=== PATIENT | female | born 1960 | race Caucasian/White ===

== ENCOUNTER 2020-03-06 12:34 | Outpatient (REF) | payer OTHER, SELFPAY ==
[2020-03-06 13:35] LABS: MANUAL DIFF FLAG NO
[2020-03-06 13:47] LABS: Basophils Absolute Auto 0.1 X10*3/uL (0.0-0.2); Basophils Percent Auto 1.4 % (0-2); Eosinophils Absolute Auto 0.1 X10*3/uL (0.0-0.4); Eosinophils Percent Auto 1.6 % (0-4); Hematocrit 40.1 % (37-47); Hemoglobin 13.1 g/dl (12.0-16.0); Imm Gran Abs Auto 0.01 X10*3/uL (0.00-0.03); Imm Gran Pct Auto 0.2 % (0.0-0.4); Lymphocytes Percent Auto 40.9 % (20-40); Mean Corpuscular HGB Conc 32.7 g/dl (31.0-35.0); Mean Corpuscular Hemoglobin 28.2 pg (27.0-33.0); Mean Corpuscular Volume 86.4 fL (80-98); Mean Platelet Volume 10.6 fL (9.4-12.3); Monocytes Absolute Auto 0.3 X10*3/uL (0.1-1.2); Neutrophils Absolute Auto 2.5 X10*3/uL (2.0-8.3); Neutrophils Percent Auto 49.9 % (45-73); Platelet Count 260 X10*3/uL (160-400); Red Blood Count 4.64 X10*6/uL (4.20-5.50); Red Cell Distribution Width 12.7 % (11.0-16.0)
[2020-03-06 14:31] LABS: Alanine Aminotransferase 14 U/L (0-31); Albumin Level 4.5 g/dL (3.5-5.0); Alkaline Phosphatase 57 U/L (39-117); Anion Gap 14 (12-20); Aspartate Amino Transferase 17 U/L (5-31); Bilirubin Total 0.6 mg/dL (0.0-1.0); Blood Urea Nitrogen 11 mg/dL (9-16); Calcium 9.3 mg/dL (8.4-10.2); Carbon Dioxide 26 mmol/L (22-29); Chloride 104 mmol/L (96-108); Cholesterol 227 mg/dL; Estimated Glomerular Filt Rate > 60; Glucose Random 98 mg/dL (60-115); HDL Cholesterol 87 mg/dL; LDL Cholesterol Calculated 123 mg/dl; Potassium 4.6 mmol/l (3.3-5.1); Sodium 139 mmol/L (135-145); Total Protein 7.2 g/dL (6.5-8.0); Triglycerides 85 mg/dL
[2020-03-06 14:48] LABS: Free T4 (Free Thyroxine) 0.78 ng/dL (0.71-1.85); Thyroid Stimulating Hormone 0.89 uIU/mL (0.32-4.0); Vitamin D 25-OH Total 30.3 ng/mL (>30)
[2020-03-06 15:08] LABS: Folate 7.9 ng/mL (> or = 4.0); Vitamin B12 321 pg/mL (200-900)
== END 2020-03-06 12:35 | disposition home or self-care (01) ==
LOC: HO.LAB 12:34
PROVIDERS: PCP Internal Medicine; Visit Provider Internal Medicine
DX: Z00.00 Encounter for general adult medical examination without abnormal findings (principal); K21.9 Gastro-esophageal reflux disease without esophagitis; F41.9 Anxiety disorder, unspecified; F32.9 Major depressive disorder, single episode, unspecified; E78.00 Pure hypercholesterolemia, unspecified
CPT/HCPCS: 36415; 80053; 80061; 82306; 82607; 82746; 84439; 84443; 85025; U0003

== ENCOUNTER 2020-04-20 09:10 | Outpatient (REF) | payer OTHER, SELFPAY ==
[2020-04-25 15:02] LABS: HPV mRNA E6/E7 rflx Not Detected (Not Detected)
== END 2020-04-20 09:11 | disposition home or self-care (01) ==
LOC: HO.LAB 09:10
PROVIDERS: PCP Internal Medicine; Visit Provider Advanced Practice Midwife
DX: Z12.4 Encounter for screening for malignant neoplasm of cervix (principal); R68.82 Decreased libido
CPT/HCPCS: 36415; 87624; 88141; 88142

== ENCOUNTER 2021-07-25 08:00 | Outpatient (REF) | payer OTHER, SELFPAY ==
[2021-07-25 08:21] LABS: MANUAL DIFF FLAG NO
[2021-07-25 08:40] LABS: Basophils Percent Auto 0.9 % (0-2); Eosinophils Percent Auto 0.9 % (0-4); Hematocrit 41.4 % (37.0-47.0); Hemoglobin 13.7 g/dl (12.0-16.0); Imm Gran Abs Auto 0.01 X10*3/uL (0.00-0.03); Imm Gran Pct Auto 0.2 % (0.0-0.4); Lymphocytes Absolute Auto 1.3 X10*3/uL (1.2-4.9); Lymphocytes Percent Auto 29.8 % (20-40); Mean Corpuscular HGB Conc 33.1 g/dl (31.0-35.0); Mean Corpuscular Hemoglobin 28.4 pg (27.0-33.0); Mean Corpuscular Volume 85.7 fL (80.0-98.0); Mean Platelet Volume 10.8 fL (9.4-12.3); Monocytes Absolute Auto 0.6 X10*3/uL (0.1-1.2); Monocytes Percent Auto 13.5 % (2-11); Neutrophils Absolute Auto 2.3 x10*3/uL (2.0-8.3); Neutrophils Percent Auto 54.7 % (45-73); Platelet Count 215 X10*3/uL (160-400); Red Blood Count 4.83 X10*6/uL (4.20-5.50); Red Cell Distribution Width 12.6 % (11.0-16.0); White Blood Count 4.3 X10*3/uL (4.8-10.8)
[2021-07-25 09:15] LABS: Alanine Aminotransferase 20 U/L (0-31); Albumin Level 4.7 g/dL (3.5-5.0); Alkaline Phosphatase 58 U/L (39-117); Anion Gap 12 (12-20); Aspartate Amino Transferase 23 U/L (5-31); Bilirubin Total 0.4 mg/dL (0.0-1.0); Blood Urea Nitrogen 11 mg/dL (9-16); Calcium 9.7 mg/dL (8.4-10.2); Carbon Dioxide 27 mmol/L (22-29); Chloride 103 mmol/L (96-108); Cholesterol 210 mg/dL; Estimated Glomerular Filt Rate > 60; Glucose Random 112 mg/dL (60-115); HDL Cholesterol 80 mg/dL; LDL Cholesterol Calculated 119 mg/dl; Potassium 4.3 mmol/L (3.3-5.1); Sodium 138 mmol/L (135-145); Total Protein 7.5 g/dL (6.5-8.0); Triglycerides 55 mg/dL
[2021-07-25 09:24] LABS: Free T4 (Free Thyroxine) 0.94 ng/dL (0.71-1.85); Thyroid Stimulating Hormone 0.83 uIU/mL (0.32-4.0); Vitamin D 25-OH Total 28.3 ng/mL (>30)
[2021-07-25 09:39] LABS: Erythrocyte Sedimentation Rate 9 MM/HR (0-20)
[2021-07-25 10:03] LABS: Appearance Urine CLEAR; Color Urine YELLOW; Glucose Urine UA NEG (NEG); Leukocyte Esterase Urine NEG (NEG); Nitrite Urine NEG (NEG); Specific Gravity - Urine 1.015 (1.005-1.025); Urine Blood 2+ (NEG); Urine Ketones NEG (NEG); Urine Protein NEG (NEG-TRACE)
[2021-07-25 10:04] LABS: Folate 10.1 ng/mL (> or = 4.0); Vitamin B12 286 pg/mL (200-900)
[2021-07-25 10:23] LABS: Renal Epithelial Cells Urine 1+ /LPF; Squamous Epithelial Cell Urine 2+ /LPF
[2021-07-25 10:24] LABS: WBC Urine 0-2 /HPF (0-4)
[2021-07-25 10:25] LABS: Bacteria Urine TRACE /LPF
== END 2021-07-25 08:01 | disposition home or self-care (01) ==
LOC: HO.LAB 08:00
PROVIDERS: PCP Internal Medicine; Visit Provider Internal Medicine
DX: R53.83 Other fatigue (principal); E78.00 Pure hypercholesterolemia, unspecified
CPT/HCPCS: 36415; 80053; 80061; 81001; 82306; 82607; 82746; 84439; 84443; 85025; 85652

== ENCOUNTER 2021-08-15 10:27 | Outpatient (REF) | payer OTHER, SELFPAY ==
[2021-08-15 11:58] LABS: Urine Cytology See Pathology rpt
[2021-08-15 12:14] LABS: Estimated Average Glucose 117 mg/dL; Hemoglobin A1c % 5.7 %
[2021-08-15 12:18] LABS: Appearance Urine CLEAR; Color Urine YELLOW; Glucose Urine UA NEG (NEG); Leukocyte Esterase Urine NEG (NEG); Nitrite Urine NEG (NEG); PH 7.5 (5.0-8.0); Urine Blood TRACE (NEG); Urine Ketones NEG (NEG); Urine Protein NEG (NEG-TRACE)
[2021-08-15 12:27] LABS: Anion Gap 12 (12-20); Blood Urea Nitrogen 13 mg/dL (9-16); Calcium 9.6 mg/dL (8.4-10.2); Carbon Dioxide 27 mmol/L (22-29); Chloride 105 mmol/L (96-108); Estimated Glomerular Filt Rate > 60; Glucose Fasting 102 mg/dL (60-99); Potassium 4.5 mmol/L (3.3-5.1); Sodium 139 mmol/L (135-145)
[2021-08-15 13:32] LABS: Squamous Epithelial Cell Urine 1+ /LPF
[2021-08-15 13:33] LABS: WBC Urine 0 /HPF (0-4)
== END 2021-08-15 10:28 | disposition home or self-care (01) ==
LOC: HO.LAB 10:27
PROVIDERS: PCP Internal Medicine; Visit Provider Internal Medicine
DX: R31.9 Hematuria, unspecified (principal); R73.01 Impaired fasting glucose
CPT/HCPCS: 36415; 80048; 81001; 83036; 88112

== ENCOUNTER 2021-09-05 10:28 | Outpatient (REF) | payer OTHER, SELFPAY ==
--- NOTE | ~2021-09-05 | MM_ITS ---
EXAMINATION: BONE DENSITOMETRY CLINICAL INDICATION: Age-related osteoporosis without current pathological fracture. COMPARISON: None (current study represents initial baseline exam). TECHNIQUE: Using a [employer] DXA System (software version: 13.1) manufactured by [employer], dual-energy x-ray absorptiometry was performed of the lumbar spine and left hip. The images are of good technical quality. Summary results are attached. FINDINGS: AP SPINE L1-L4: BMD 0.888 g/cm2, Z-score -1.4, T-score -2.4, osteopenia. LEFT FEMUR, NECK: BMD 0.811 g/cm2, Z-score -0.5, T-score -1.6, osteopenia. LEFT FEMUR, TOTAL: BMD 0.842 g/cm2, Z-score -0.5, T-score -1.3, osteopenia. IDENTIFIED RISK FACTORS: Menopause, history of fracture (adult). HISTORY OF FRACTURE: Elbow. MEDICATIONS: Vitamin D. MM/XR DEXA axial skeleton IMPRESSION: 1. DIAGNOSIS: Osteopenia based on the lowest T-score value of -2.4 in the lumbar spine applying World Health Organization criteria. 2. 10-YEAR FRACTURE RISK PREDICTION, FRAX: Major osteoporotic fracture (clinical spine, forearm, hip or shoulder) 13.0%. Hip fracture 1.4%. 3. Treatment Recommendations: NOF guidelines recommend consideration for treatment in postmenopausal women and men age 50 and older presenting with the following: -A hip or vertebral (clinical or morphometric) fracture. -T-score less than or equal to -2.5 at the femoral neck or spine after appropriate evaluation to exclude secondary causes. -Low bone mass at the hip or spine and a 10-year fracture probability by FRAX of greater than or equal to 3% for hip fracture or greater than or equal to 20% for major osteoporotic fracture based on the [place] adapted WHO algorithm. 4. Other Recommendations: All treatment decisions require clinical judgment and consideration of individual patient factors, including patient preferences, comorbidities, previous drug use, risk factors not captured in the FRAX model (e.g. frailty, falls, vitamin D deficiency, increased bone turnover, interval significant decline in bone density) and possible under or overestimation of fracture risk by FRAX. Additional medical evaluation for secondary cause of low bone mineral density may be appropriate. FUTURE SCAN RECOMMENDATION: People with diagnosed cases of osteoporosis or at high risk for fracture should have regular bone mineral density tests. For patients eligible for Medicare, routine testing is allowed once every 2 years. The testing frequency can be increased to one year for patients who have rapidly progressing disease, those who are receiving or discontinuing medical therapy to restore bone mass, or have additional risk factors.
--- NOTE | ~2021-09-05 | MM_ITS ---
EXAMINATION: MM SCREENING DIGITAL BREAST TOMOSYNTHESIS, BILATERAL CLINICAL INFORMATION: Screening. Asymptomatic. The lifetime risk of breast cancer based on the Tyrer-Cuzick Model is 11%. COMPARISON: Mammography: 04/11/2019, 03/20/2018, 04/18/2016 TECHNIQUE: Digital breast tomosynthesis is performed in both the craniocaudal and mediolateral oblique views along with computer-aided detection (CAD). Synthesized 2D images are generated from the tomosynthesis. FINDINGS: The breasts are heterogeneously dense, which may obscure small masses (ACR BI-RADS breast composition Category c). There are no significant masses, abnormal calcifications, or other abnormalities. No developing density or architectural abnormality. No significant changes from prior studies. MM/MM tomosynthesis screening BI IMPRESSION: No mammographic evidence of malignancy. ASSESSMENT: BI-RADS 1: Negative RECOMMENDATION: Routine annual mammography screening. This patient's information was entered into a reminder system with a target due date for their next mammogram.
== END 2021-09-05 10:29 | disposition home or self-care (01) ==
LOC: HO.MAMMO 10:28
PROVIDERS: PCP Internal Medicine; Visit Provider Internal Medicine
DX: Z12.31 Encounter for screening mammogram for malignant neoplasm of breast (principal); Z13.820 Encounter for screening for osteoporosis; M81.0 Age-related osteoporosis without current pathological fracture; Z78.0 Asymptomatic menopausal state
CPT/HCPCS: 77063; 77067; 77080

== ENCOUNTER 2022-02-12 13:44 | Outpatient (REF) | payer OTHER, SELFPAY ==
[2022-02-13 06:33] LABS: HBS Num1 > 1000.00 mIU/mL (0-7.99); HBc Num1 0.09 S/CO (0.00-0.79); HBsAGNum1 0.17 S/CO (0.00-0.99); Hepatitis B Core Antibody Nonreactive (Nonreactive); Hepatitis B Surface Antigen Negative (Negative); ~HepC Num1 0.17 S/CO (0.00-0.79); ~Hepatitis B Surface Antibody REACTIVE (Nonreactive); ~Hepatitis C Antibody Nonreactive (Nonreactive)
[2022-02-14 10:27] LABS: Rubella IgG Antibody 6.54 Index
== END 2022-02-12 13:45 | disposition home or self-care (01) ==
LOC: HO.LAB 13:44
PROVIDERS: PCP Internal Medicine; Visit Provider Internal Medicine
DX: Z02.1 Encounter for pre-employment examination (principal); R79.89 Other specified abnormal findings of blood chemistry
CPT/HCPCS: 36415; 86704; 86706; 86735; 86762; 86765; 86787; 86803; 87340

== ENCOUNTER 2022-09-19 08:26 | Outpatient (REF) | payer OTHER, SELFPAY ==
--- NOTE | ~2022-09-19 | FL_ITS ---
EXAMINATION: XR GI SERIES CLINICAL INFORMATION: Dysphagia COMPARISON: None available. TECHNIQUE: Upper GI was performed using thin and thick barium and effervescent granules FINDINGS: Esophageal motility is normal. There is severe gastroesophageal reflux. No hernia or stricture is seen. The stomach and duodenum are normal. No fold thickening, mass, ulcer or stricture is seen. FLUOROSCOPY TIME: 0.5 minutes DOSE AREA PRODUCT: 3.3 duran per centimeter squared. Total dose 11 mgy. 24 saved fluoroscopic images. FL/FL upper GI series IMPRESSION: Severe gastroesophageal reflux.
[2022-09-19 09:13] LABS: MANUAL DIFF FLAG NO
[2022-09-19 09:32] LABS: Basophils Absolute Auto 0.1 X10*3/uL (0.0-0.2); Eosinophils Absolute Auto 0.2 X10*3/uL (0.0-0.4); Eosinophils Percent Auto 4.2 % (0-4); Hematocrit 40.2 % (37.0-47.0); Hemoglobin 13.2 g/dl (12.0-16.0); Imm Gran Abs Auto 0.02 X10*3/uL (0.00-0.03); Imm Gran Pct Auto 0.4 % (0.0-0.4); Lymphocytes Absolute Auto 1.8 X10*3/uL (1.2-4.9); Lymphocytes Percent Auto 40.6 % (20-40); Mean Corpuscular HGB Conc 32.8 g/dl (31.0-35.0); Mean Corpuscular Hemoglobin 28.4 pg (27.0-33.0); Mean Corpuscular Volume 86.5 fL (80.0-98.0); Mean Platelet Volume 10.3 fL (9.4-12.3); Monocytes Absolute Auto 0.3 X10*3/uL (0.1-1.2); Monocytes Percent Auto 6.7 % (2-11); Neutrophils Absolute Auto 2.1 x10*3/uL (2.0-8.3); Neutrophils Percent Auto 46.1 % (45-73); Platelet Count 210 X10*3/uL (160-400); Red Blood Count 4.65 X10*6/uL (4.20-5.50); Red Cell Distribution Width 12.8 % (11.0-16.0); White Blood Count 4.5 X10*3/uL (4.8-10.8)
[2022-09-19 10:20] LABS: Alanine Aminotransferase 13 U/L (0-31); Albumin Level 4.5 g/dL (3.5-5.0); Alkaline Phosphatase 58 U/L (39-117); Anion Gap 13 (12-20); Aspartate Amino Transferase 19 U/L (5-31); Bilirubin Total 0.7 mg/dL (0.0-1.0); Blood Urea Nitrogen 16 mg/dL (9-16); Calcium 9.8 mg/dL (8.4-10.2); Carbon Dioxide 28 mmol/L (22-29); Chloride 104 mmol/L (96-108); Cholesterol 233 mg/dL; Estimated Glomerular Filt Rate > 60; Glucose Random 99 mg/dL (60-115); HDL Cholesterol 88 mg/dL; LDL Cholesterol Calculated 135 mg/dl; Potassium 4.2 mmol/L (3.3-5.1); Sodium 141 mmol/L (135-145); Total Protein 7.3 g/dL (6.5-8.0); Triglycerides 50 mg/dL
[2022-09-19 10:46] LABS: Free T4 (Free Thyroxine) 0.83 ng/dL (0.71-1.85); Vitamin D 25-OH Total 54.6 ng/mL (>30)
[2022-09-19 10:54] LABS: Vitamin B12 635 pg/mL (200-900)
== END 2022-09-19 08:27 | disposition home or self-care (01) ==
LOC: HO.XRAY 08:26
PROVIDERS: PCP Internal Medicine; Visit Provider Internal Medicine
DX: K21.9 Gastro-esophageal reflux disease without esophagitis (principal); R13.10 Dysphagia, unspecified; E78.00 Pure hypercholesterolemia, unspecified; E53.8 Deficiency of other specified B group vitamins; R73.01 Impaired fasting glucose; M81.0 Age-related osteoporosis without current pathological fracture
CPT/HCPCS: 36415; 74240; 80053; 80061; 82306; 82607; 82746; 84439; 84443; 85025

== ENCOUNTER 2023-02-16 11:53 | Outpatient (AMB) | payer OTHER, SELFPAY ==
--- NOTE | 2023-02-16 11:56 | A.OFFVIS_ITS ---
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 No complaints. Last Pap/HPV was negative in 04/26 Last Mammogram was BI-RADS 1 in 09/25 Last screening Colonoscopy was in 12/19, the recommendation was to repeat in 10 years [facility] Medical History Fatigue Breast cancer screening Oral candidiasis Cervical cancer screening Fracture of radial neck, right, closed Cholelithiasis Anemia GERD (gastroesophageal reflux disease) Mixed incontinence urge and stress Surgical History No pertinent past surgical history Family History Father Mouth cancer Throat cancer Substance abuse Mother No problems noted. Maternal Grandmother Cervical cancer Maternal Grandfather Prostate cancer Maternal Aunt Breast cancer Paternal Grandmother Myocardial infarct Paternal Uncle Substance abuse Paternal Grandfather Substance abuse Other Mental health disorder Social History (Updated 02/16/23 @ 12:05 by Nia Quiñonez CMA) Household Members: Spouse Housing: Apartment Alcohol intake: current Patient Tobacco Use Status: Never used Tobacco e-Cigarette/Vaping Use: Never Used Second Hand Smoke Exposure: No service: No Current occupational status: employed Current occupation: [employer] Sexually active: Yes Sexual orientation: Straight/Heterosexual Gender identity: Female Cognitive needs: No Hearing needs: No Vision needs: Yes Female Reproductive History Menstrual Menopause type: natural Total pregnancies: 4 Full term: 2 Number of Living Children: 2 Ab induced: 2 Date of last pap smear: 04/23/20 Date of Mammogram: 09/05/21 Review of Systems Const All systems reviewed & are unremarkable except as noted in HPI and below Card Reports as per HPI Resp Reports as per HPI GI Reports as per HPI and Reports no additional complaints Reports as per HPI Physical Exam Vital Signs: Last Vital Signs BP 114/64 02/16/23 12:01 BMI result Body Mass Index 20.9 Const General: cooperative, healthy appearing and comfortable Chest Chest palpation & inspection: normal inspection of the chest and normal palpation of entire chest wall Breast/axilla inspection: normal inspection of the breasts and normal inspection of the axillae Breast/axilla palpation: normal palpation of the breasts, normal palpation of the axillae and no axillary lymphadenopathy Resp Effort & Inspection: normal respiratory effort Auscultation: clear to auscultation bilaterally Percussion: percussion normal Cardio Palpation: normal PMI Rate: regular rate Rhythm: regular rhythm Heart sounds: no murmurs and no rubs Peripheral pulses: Peripheral pulses 2+ throughout GI Inspection: Yes normal to inspection Palpation (GI): Soft to palpation, nontender, no guarding, not rigid and No hepatosplenomegaly present Percussion: Yes normal to percussion Auscultation: normal bowel sounds Rectal Exam - Female: deferred General: Yes bladder normal to palpation External Female Exam: No lesion Speculum Exam - Vagina: normal appearance of the vagina, normal palpation, normal vaginal discharge and not erythematous Speculum Exam - Cervix: normal appearance of the cervix and normal palpation Bimanual exam- vagina & uterus: normal bimanual exam, normal palpation, uterine size normal, bladder normal to palpation, consistency normal and normal palpation Bimanual Exam- Adnexa, other: normal adnexae, no masses and no tenderness Assessment & Plan Assessment & Plan (1) Well woman exam: Code(s): Z01.419 - Encounter for gynecological examination (general) (routine) without abnormal findings Plan: Co testing not indicated this year. Counseled the patient about the recommended dietary allowance of 1200 mg of Calcium & 600 IU of vitamin D. Mammogram ordered. The patient was instructed to perform monthly self-breast exams and schedule annual exam in a year. All questions answered and the patient verbalized understanding. Orders: Orders MM screening mammo BI Today Z12.31 - Encounter for screening mammogram for malignant neoplasm of breast Coding Level of Care Code New Pt Prev Care 40-64y(16029) Diagnoses Well woman exam Z01.419
[2023-02-16 12:01] VITALS: BP 114/64; BMI 20.9
== END 2023-02-16 12:25 | disposition home or self-care (01) ==
PROVIDERS: PCP Internal Medicine; Visit Provider Obstetrics & Gynecology
DX: Z01.419 Encounter for gynecological examination (general) (routine) without abnormal findings (principal)
CPT/HCPCS: 99386

== ENCOUNTER → 2023-02-16 11:53 | Outpatient (BNVA) | payer OTHER, SELFPAY | PROVIDERS: PCP Internal Medicine; Visit Provider Obstetrics & Gynecology ==

== ENCOUNTER 2023-02-25 12:24 | Outpatient (REF) | payer OTHER, SELFPAY | END 2023-02-25 12:25 | disposition home or self-care (01) | LOC: HO.MAMMO 12:24 | PROVIDERS: PCP Internal Medicine; Visit Provider Obstetrics & Gynecology | DX: Z12.31 Encounter for screening mammogram for malignant neoplasm of breast (principal) | CPT/HCPCS: 77063; 77067 ==

== ENCOUNTER → 2023-02-25 12:30 | Outpatient (BNV) | payer OTHER, SELFPAY | PROVIDERS: PCP Internal Medicine; Visit Provider Radiology Diagnostic Radiology | DX: Z12.31 Encounter for screening mammogram for malignant neoplasm of breast (principal) | CPT/HCPCS: 77063; 77067 ==

== ENCOUNTER 2023-08-14 12:53 | Outpatient (AMB) | payer OTHER, SELFPAY ==
--- NOTE | 2023-08-14 12:57 | A.OFFPC_ITS ---
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 Accompanied by: Self / Same As Patient Allergies codeine [CODEINE] Allergy (Unknown, Verified 08/14/23 12:59) NAUSEA & VOMITING oxycodone [OXYCODONE] Allergy (Unknown, Verified 08/14/23 12:59) NAUSEA & VOMITING Sulfa (Sulfonamide Antibiotics) [SULFA (SULFONAMIDE ANTIBIOTICS)] Allergy (Unknown, Verified 08/14/23 12:59) RASH Medication List - Last Reconciled 08/14/23 by Karen Mesa MD fluoxetine 20 mg PO DAILY hydrocortisone-acetic acid 1-2 % 4 drps otic (ear) left TID omeprazole 20 mg PO DAILY Tobacco use date assessed: 08/14/23 HPI Rash on face and wants a skin check HPI Details 62-year-old female with GERD last seen i n August 2022 coming in for an acute problem. Patient is due for mammogram. Had EGD done in June 2023 with normal esophagus noted gastritis biopsy negative on omeprazole 20 mg once a day Dr[address] Galo. Patient did have an x-ray done showing severe GERD. Blood work did show mild hypercholesterolemia. complains of ear itching and face rash- discussed that this looks like eczema [facility] Medical History (Reviewed 02/16/23 @ 12:03 by Nia Quiñonez [facility] [address]) Fatigue Breast cancer screening Oral candidiasis Cervical cancer screening Fracture of radial neck, right, closed Cholelithiasis Anemia GERD (gastroesophageal reflux disease) Mixed incontinence urge and stress Surgical History No pertinent past surgical history Family History Father Mouth cancer Throat cancer Substance abuse Mother No problems noted. Maternal Grandmother Cervical cancer Maternal Grandfather Prostate cancer Maternal Aunt Breast cancer Paternal Grandmother Myocardial infarct Paternal Uncle Substance abuse Paternal Grandfather Substance abuse Other Mental health disorder Social History Household Members: Spouse Housing: Apartment Alcohol intake: current Patient Tobacco Use Status: Never used Tobacco e-Cigarette/Vaping Use: Never Used Second Hand Smoke Exposure: No service: No Current occupational status: employed Current occupation: [employer] Sexual orientation: Straight/Heterosexual Gender identity: Female Cognitive needs: No Hearing needs: No Vision needs: Yes Questionnaire PHQ-9 Over the last 2 weeks, how often have you been bothered by any of the following problems? 1. Little interest or pleasure in doing things: not at all 2. Feeling down, depressed, or hopeless: not at all 3. Trouble falling or staying asleep, or sleeping too much: not at all 4. Feeling tired or having little energy: not at all 5. Poor appetite or overeating: not at all 6. Feeling bad about yourself - or that you are a failure or have let yourself or your family down: not at all 7. Trouble concentrating on things, such as reading the newspaper or watching television: not at all 8. Moving or speaking so slowly that other people could have noticed. Or the opposite - being so fidgety or restless that you have been moving around a lot more than usual: not at all 9. Thoughts that you would be better off or of hurting yourself in some way: not at all Total score: 0 Depression Screening Interpretation: Negative Depression Screening Done: Yes 19385 - PHQ-9 Billing: Yes Source: Developed by Drs. Rocky Douglas, Sarah Lara, Bunny Patel and colleagues, with an educational tereso from [employer]. Thrive Questionnaire Date Thrive assessed: 08/14/23 I am a: Patient What is your living situation today?: I have a steady place to live Within the past 12 months, did the food you bought not last and you didn't have the money to get more?: Never true Within the past 12 months, did you worry whether your food would run out before you got money to buy more?: Never true Do you have trouble paying for medicines?: No Do you have trouble getting transportation to medical appointments?: No Do you have trouble paying your heating and electricity bill?: No Do you have trouble taking care of your child, family member or friend?: No Do you have trouble with day-to-day activities such as bathing, preparing meals, shopping, managing finances, etc.?: No Are you currently unemployed and looking for a job?: No Are you interested in more education?: No Please select the resources that you would like help with: None Currently or been in a relationship where the following occur: no concerns reported THRIVE Score: 0 AUDIT C Alcohol Use Questionnaire (AUDIT-C) 1. How often do you have a drink containing alcohol?: 2-3 times a week 2. How many drinks containing alcohol do you have on a typical day when you are drinking?: 1 or 2 3. How often do you have six or more drinks on one occasion?: Never Total Score: 3 ISAURA-7 AMB Questionnaire ISAURA-7 Date ISAURA - 7 assessed: 08/14/23 Feeling nervous, anxious, or on edge: 0 = Not at all Not being able to stop or control worryin = Not at all Worrying too much about different things: 0 = Not at all Trouble relaxin = Not at all Being so restless that it is hard to sit still: 0 = Not at all Becoming easily annoyed or irritable: 0 = Not at all Feeling afraid as if something awful might happen: 0 = Not at all Total ISAURA-7 score (0-4 normal; 5-9 mild; 10-14 moderate; 15-21 severe): 0 Source: Developed by Drs. Rocky Douglas, Sarah Lara, Bunny Patel and colleagues, with an educational tereso from [employer]. ISAURA-7 Assessment Billing ISAURA-7 Assessment Tool: ISAURA-7 Assessment [id number] Physical exam (Primary Care) Vital Signs: Last Vital Signs Pulse 62 08/14/23 13:01 BP 120/80 08/14/23 13:01 Pulse Ox 98 08/14/23 13:01 Oxygen Delivery Method Room Air 08/14/23 13:01 Care Plan Goal for BP management: ear and face skin rash scaly fine BMI result Body Mass Index 21.6 Tobacco/Smoking Status: Tobacco use Status Tobacco use date assessed 08/14/23 08/14/23 13:00 Patient Tobacco Use Status Never used Tobacco 08/14/23 12:57 e-Cigarette/Vaping Use Never Used 08/14/23 12:57 PHQ-9: PHQ-9 Score PHQ-9: Total score 0 08/14/23 13:37 Depression Screening Interpretation: Negative Thrive Assessment: Date of Thrive Assessment Date Thrive assessed 08/14/23 08/14/23 13:06 Currently or been in a relationship where the following occur: no concerns reported Const General: alert; No acute distress Eyes Conjunctivae: conjunctivae normal Resp Auscultation: clear to auscultation bilaterally Cardio Rate: regular rate Rhythm: regular rhythm GI Inspection: Yes normal to inspection Extrem General: Yes normal to inspection and No edema Assessment and Plan Assessment & Plan (1) GERD (gastroesophageal reflux disease): Comment: GI series September 2022 severe GERD Code(s): K21.9 - Gastro-esophageal reflux disease without esophagitis Plan: Avoid the foods that causes that usually spicy foods, tomato products, juices, coffee, soda and foods that your sensitive to. After eating do not lie down, allow 3-4 hours before in lie down. And keep the head of bed above 30 degrees to avoid the acid from going up. EGD done negative placed on omeprazole (2) Hypercholesterolemia: Code(s): E78.00 - Pure hypercholesterolemia, unspecified Plan: Avoid fried foods, chicken skin, eggs, butter margarine, pastries and meat. Be it pork or beef they have a lot of cholesterol LDL goal of less than 130 and triglyceride of less than 150. (3) Generalized anxiety disorder: Code(s): F41.1 - Generalized anxiety disorder Plan: Continue with present medication. (4) Ear itching: Code(s): L29.9 - Pruritus, unspecified Plan: Eardrum prescription sent in (5) Facial dermatitis: Code(s): L30.9 - Dermatitis, unspecified Plan: Discussed that this looks more like eczema. Will get dermatology referral. Orders: Orders Lipid Panel Today E78.00 - Pure hypercholesterolemia, unspecified Vitamin B12 and Folate Today E78.00 - Pure hypercholesterolemia, unspecified Vitamin D 25-OH Total Today E78.00 - Pure hypercholesterolemia, unspecified Complete Blood Count Auto Diff Today E78.00 - Pure hypercholesterolemia, unspecified Comprehensive Met. Panel Today E78.00 - Pure hypercholesterolemia, unspecified Free T4 (Free Thyroxine) Today E78.00 - Pure hypercholesterolemia, unspecified Thyroid Stimulating Hormone Today E78.00 - Pure hypercholesterolemia, unspecified Magnesium Today E78.00 - Pure hypercholesterolemia, unspecified Referrals Dermatology Referral L29.9 - Pruritus, unspecified, L30.9 - Dermatitis, unspecified Medications: New hydrocortisone-acetic acid 1-2 % 4 drps otic (ear) left TID 10 mL 0RF E78.00 - Pure hypercholesterolemia, unspecified Refilled fluoxetine 20 mg PO DAILY 90 caps 3RF E53.8 - Deficiency of other specified B group vitamins Coding Level of Care Code Est Pt Level 4 (91106) Diagnoses GERD (gastroesophageal reflux disease) K21.9 Hypercholesterolemia E78.00 Generalized anxiety disorder F41.1 Ear itching L29.9 Facial dermatitis L30.9 Additional Codes ISAURA-7 Assessment Billing - ISAURA-7 Assessment Tool: ISAURA-7 Assessment [id number] ([id number])
[2023-08-14 13:01] VITALS: BP 120/80; PULSE 62; O2SAT 98; BMI 21.6
== END 2023-08-14 13:48 | disposition home or self-care (01) ==
PROVIDERS: PCP Internal Medicine; Visit Provider Internal Medicine
DX: K21.9 Gastro-esophageal reflux disease without esophagitis (principal); E78.00 Pure hypercholesterolemia, unspecified; F41.1 Generalized anxiety disorder; L29.9 Pruritus, unspecified; L30.9 Dermatitis, unspecified
CPT/HCPCS: 99214

== ENCOUNTER 2023-08-21 10:23 | Outpatient (REF) | payer OTHER, SELFPAY ==
[2023-08-21 10:36] LABS: MANUAL DIFF FLAG NO
[2023-08-21 11:02] LABS: Basophils Absolute Auto 0.1 X10*3/uL (0.0-0.2); Basophils Percent Auto 1.5 % (0-2); Eosinophils Absolute Auto 0.1 X10*3/uL (0.0-0.4); Eosinophils Percent Auto 1.9 % (0-4); Hematocrit 39.6 % (37.0-47.0); Hemoglobin 13.1 g/dl (12.0-16.0); Imm Gran Abs Auto 0.01 X10*3/uL (0.00-0.03); Imm Gran Pct Auto 0.2 % (0.0-0.4); Lymphocytes Absolute Auto 1.9 X10*3/uL (1.2-4.9); Lymphocytes Percent Auto 41.2 % (20-40); Mean Corpuscular HGB Conc 33.1 g/dl (31.0-35.0); Mean Corpuscular Hemoglobin 28.2 pg (27.0-33.0); Mean Corpuscular Volume 85.3 fL (80.0-98.0); Mean Platelet Volume 10.6 fL (9.4-12.3); Monocytes Absolute Auto 0.3 X10*3/uL (0.1-1.2); Monocytes Percent Auto 7.1 % (2-11); Neutrophils Absolute Auto 2.2 x10*3/uL (2.0-8.3); Neutrophils Percent Auto 48.1 % (45-73); Platelet Count 221 X10*3/uL (160-400); Red Blood Count 4.64 X10*6/uL (4.20-5.50); Red Cell Distribution Width 12.9 % (11.0-16.0); White Blood Count 4.6 X10*3/uL (4.8-10.8)
[2023-08-21 11:53] LABS: Alanine Aminotransferase 12 U/L (0-31); Albumin Level 4.6 g/dL (3.5-5.0); Alkaline Phosphatase 60 U/L (39-117); Anion Gap 12 (12-20); Aspartate Amino Transferase 17 U/L (5-31); Bilirubin Total 0.6 mg/dL (0.0-1.0); Blood Urea Nitrogen 14 mg/dL (9-16); Calcium 9.5 mg/dL (8.4-10.2); Carbon Dioxide 28 mmol/L (22-29); Chloride 103 mmol/L (96-108); Cholesterol 217 mg/dL (<200); Estimated Glomerular Filt Rate > 60; Glucose Random 102 mg/dL (60-115); HDL Cholesterol 88 mg/dL (>40); LDL Cholesterol Calculated 115 mg/dL (<100); Magnesium 1.9 mg/dL (1.6-2.6); Potassium 4.2 mmol/L (3.3-5.1); Sodium 139 mmol/L (135-145); Total Protein 7.4 g/dL (6.5-8.0); Triglycerides 72 mg/dL (<150)
[2023-08-21 11:58] LABS: Free T4 (Free Thyroxine) 0.92 ng/dL (0.71-1.85); Thyroid Stimulating Hormone 0.66 uIU/mL (0.32-4.0); Vitamin D 25-OH Total 42.4 ng/mL (>30)
[2023-08-21 12:10] LABS: Folate 11.6 ng/mL (> or = 4.0); Vitamin B12 688 pg/mL (200-900)
== END 2023-08-21 10:24 | disposition home or self-care (01) ==
LOC: HO.LAB 10:23
PROVIDERS: PCP Internal Medicine; Visit Provider Internal Medicine
DX: E78.00 Pure hypercholesterolemia, unspecified (principal)
CPT/HCPCS: 36415; 80053; 80061; 82306; 82607; 82746; 83735; 84439; 84443; 85025

== ENCOUNTER 2024-02-08 15:56 | Outpatient (AMB) | payer OTHER, SELFPAY ==
--- NOTE | 2024-02-08 16:12 | MHC.PC.OV ---
Vital Signs 02/08/24 16:13 Height 5 ft 10 in Weight 155 lb 0.6 oz BMI 22.2 BP 130/80 Blood Pressure Location Lt brachial Position Sitting Pulse 60 Pulse Source Pulse Oximeter Pulse Oximetry (%) 98 Oxygen Delivery Method Room Air Intake Visit Reasons: PE Allergies codeine [CODEINE] Allergy (Unknown, Verified 08/14/23 12:59) NAUSEA & VOMITING oxycodone [OXYCODONE] Allergy (Unknown, Verified 08/14/23 12:59) NAUSEA & VOMITING Sulfa (Sulfonamide Antibiotics) [SULFA (SULFONAMIDE ANTIBIOTICS)] Allergy (Unknown, Verified 08/14/23 12:59) RASH Medication List - Last Reconciled 02/08/24 by Karen Mesa MD cyanocobalamin (vitamin B-12) 1,000 mcg PO DAILY fluoxetine 20 mg PO DAILY hydrocortisone-acetic acid 1-2 % 4 drps otic (ear) left TID iideqfum-zur-ZY-lycopen-lutein 0.4 mg-300 mcg- 250 mcg (Centrum Silver) 1 tab PO DAILY Tobacco use date assessed: 02/08/24 Dental Screening Dental Screen Date: 02/08/24 HPI PE HPI Details 63-year-old female with GERD hypercholesterolemia generalized anxiety disorder last seen in August 2023 coming in for physical exam. Patient's colonoscopy is 2015 mammogram 03/25/2023. Review of the notes has seen [place] [facility] September 2023 for GERD omeprazole 20 mg once a day and advised that can take on so Pepcid 20 mg as needed. floater R eye and has not week opha [facility] Medical History Fatigue Breast cancer screening Oral candidiasis Cervical cancer screening Fracture of radial neck, right, closed Cholelithiasis Anemia GERD (gastroesophageal reflux disease) Mixed incontinence urge and stress Surgical History No pertinent past surgical history Family History Father Mouth cancer Throat cancer Substance abuse Mother No problems noted. Maternal Grandmother Cervical cancer Maternal Grandfather Prostate cancer Maternal Aunt Breast cancer Paternal Grandmother Myocardial infarct Paternal Uncle Substance abuse Paternal Grandfather Substance abuse Other Mental health disorder Social History (Updated 02/08/24 @ 16:39 by Karen Mesa MD) Household Members: Spouse Housing: Apartment Alcohol intake: current Comment: 2-3 x a week 1 glass Patient Tobacco Use Status: Never used Tobacco e-Cigarette/Vaping Use: Never Used Second Hand Smoke Exposure: No service: No Current occupational status: employed Current occupation: [employer] Sexual orientation: Straight/Heterosexual Gender identity: Female Cognitive needs: No Hearing needs: No Vision needs: Yes Questionnaire PHQ-9 Over the last 2 weeks, how often have you been bothered by any of the following problems? 1. Little interest or pleasure in doing things: not at all 2. Feeling down, depressed, or hopeless: not at all 3. Trouble falling or staying asleep, or sleeping too much: not at all 4. Feeling tired or having little energy: not at all 5. Poor appetite or overeating: not at all 6. Feeling bad about yourself - or that you are a failure or have let yourself or your family down: not at all 7. Trouble concentrating on things, such as reading the newspaper or watching television: not at all 8. Moving or speaking so slowly that other people could have noticed. Or the opposite - being so fidgety or restless that you have been moving around a lot more than usual: not at all 9. Thoughts that you would be better off or of hurting yourself in some way: not at all Total score: 0 Source: Developed by Drs. Rocky Douglas, Sarah Lara, Bunny Patel and colleagues, with an educational tereso from [employer]. Thrive Questionnaire Date Thrive assessed: 02/04/24 I am a: Patient What is your living situation today?: I have a steady place to live Within the past 12 months, did the food you bought not last and you didn't have the money to get more?: Never true Within the past 12 months, did you worry whether your food would run out before you got money to buy more?: Never true Do you have trouble paying for medicines?: No Do you have trouble getting transportation to medical appointments?: No Do you have trouble paying your heating and electricity bill?: No Do you have trouble taking care of your child, family member or friend?: No Do you have trouble with day-to-day activities such as bathing, preparing meals, shopping, managing finances, etc.?: No Are you currently unemployed and looking for a job?: No Are you interested in more education?: No Please select the resources that you would like help with: None Currently or been in a relationship where the following occur: No concerns reported THRIVE Score: 0 AUDIT C Alcohol Use Questionnaire (AUDIT-C) 1. How often do you have a drink containing alcohol?: 2-3 times a week 2. How many drinks containing alcohol do you have on a typical day when you are drinking?: 1 or 2 3. How often do you have six or more drinks on one occasion?: Never Total Score: 3 ISAURA-7 AMB Questionnaire ISAURA-7 Date ISAURA - 7 assessed: 08/14/23 Feeling nervous, anxious, or on edge: 0 = Not at all Not being able to stop or control worryin = Not at all Worrying too much about different things: 0 = Not at all Trouble relaxin = Not at all Being so restless that it is hard to sit still: 0 = Not at all Becoming easily annoyed or irritable: 0 = Not at all Feeling afraid as if something awful might happen: 0 = Not at all Total ISAURA-7 score (0-4 normal; 5-9 mild; 10-14 moderate; 15-21 severe): 0 Source: Developed by Drs. Rocky Douglas, Sarah Lara, Bunny Patel and colleagues, with an educational tereso from [employer]. Review of Systems Const Denies poor appetite and Denies weakness Eyes Denies no additional complaints ENT Reports Normal hearing present, Denies dizziness, Denies nasal congestion, Denies tinnitus and Denies sore throat Card Denies chest pain, Denies syncope, Denies rapid heart rate and Denies dyspnea Resp Denies cough and Denies dyspnea GI Denies change in stool character, Reports constipation, Denies diarrhea, Denies nausea and Denies vomiting Denies urinary frequency, Denies difficulty voiding and Denies dysuria Neuro Reports Normal hearing present, Denies confusion, Denies dizziness, Denies syncope and Denies weakness Psych Denies confusion Physical exam (Primary Care) Vital Signs: Last Vital Signs Pulse 60 02/08/24 16:13 BP 130/80 02/08/24 16:13 Pulse Ox 98 02/08/24 16:13 Oxygen Delivery Method Room Air 02/08/24 16:13 BMI result Body Mass Index 22.2 Tobacco/Smoking Status: Tobacco use Status Tobacco use date assessed 02/08/24 02/08/24 16:15 Patient Tobacco Use Status Never used Tobacco 02/08/24 16:39 e-Cigarette/Vaping Use Never Used 02/08/24 16:39 PHQ-9: PHQ-9 Score PHQ-9: Total score 0 02/08/24 16:33 Thrive Assessment: Date of Thrive Assessment Date Thrive assessed 02/04/24 02/08/24 16:15 Currently or been in a relationship where the following occur: No concerns reported Const General: No confusion Orientation/consciousness: No confusion HENMT Head: Yes normocephalic Ears: external ears normal and TM's normal bilaterally Face and sinus: Yes normal facial exam Mouth: moist mucous membranes Throat: Yes tonsils normal Eyes Conjunctivae: conjunctivae normal Pupils: Equal, round and reactive pupils present and Pupil accommodation reflex normal Direct Ophthalmoscopy: normal light reflex Neck Neck: No lymphadenopathy Thyroid: Thyroid normal Chest Chest palpation & inspection: normal inspection of the chest Resp Effort & Inspection: normal respiratory effort and no audible wheezes Auscultation: clear to auscultation bilaterally, no crackles, no wheezes and lung sounds not diminished Cardio Rate: regular rate Rhythm: regular rhythm Peripheral pulses: radial pulses present and dorsalis pedis present GI Palpation (GI): no masses Auscultation: normal bowel sounds and normoactive bowel sounds Rectal Exam - Female: deferred Skin General skin exam: no rashes or lesions noted Rashes: no rashes Neuro General: No confusion Cranial nerves: Yes Equal, round and reactive pupils present and Yes Normal hearing present Cognition (Neuro): normal cognition Gait exam (Neuro): Normal gait present Motor exam (neuro): 5/5 motor strength present throughout Deep tendon reflexes (DTR's): Right brachioradialis reflex intensity grade: 2+, Left brachioradialis reflex intensity grade: 2+, Right patellar reflex intensity grade: 2+ and Left patellar reflex intensity grade: 2+ Extrem General: No edema Coding Level of Care Code Est Pt Prev Care 40-64y(92166) Diagnoses Annual physical exam Z00.00 Gastroesophageal reflux disease without esophagitis K21.9 Esophagitis presence: without esophagitis Impaired fasting blood sugar R73.01 Hypercholesterolemia E78.00 Generalized anxiety disorder F41.1 Vitreous floaters of right eye H43.391 Laterality: right Wrinkles L98.8 Assessment & Plan Assessment & Plan (1) Annual physical exam: Code(s): Z00.00 - Encounter for general adult medical examination without abnormal findings Category: Medical Plan: Patient is advised to eat healthy, keep well hydrated, keep active and have adequate sleep. (2) GERD (gastroesophageal reflux disease): Comment: GI series September 2022 severe GERD Code(s): K21.9 - Gastro-esophageal reflux disease without esophagitis Category: Medical Qualifiers: Esophagitis presence: without esophagitis Qualified Code(s): K21.9 - Gastro-esophageal reflux disease without esophagitis Plan: Avoid the foods that causes that usually spicy foods, tomato products, juices, coffee, soda and foods that your sensitive to. After eating do not lie down, allow 3-4 hours before in lie down. And keep the head of bed above 30 degrees to avoid the acid from going up. (3) Impaired fasting blood sugar: Code(s): R73.01 - Impaired fasting glucose Category: Medical Plan: Decrease the amount of carbohydrate intake, pasta, bread, rice and potatoes are all sugar and that is aside from all the sweet stuff, remember that fruits are good but they are Sweet also. (4) Hypercholesterolemia: Code(s): E78.00 - Pure hypercholesterolemia, unspecified Category: Medical Plan: Avoid fried foods, chicken skin, eggs, butter margarine, pastries and meat. Be it pork or beef they have a lot of cholesterol LDL goal of less than 130 and triglyceride of less than 150. Last blood work in August was good (5) Generalized anxiety disorder: Code(s): F41.1 - Generalized anxiety disorder Category: Medical Plan: Continue with present medication (6) Floaters in visual field: Code(s): H43.399 - Other vitreous opacities, unspecified eye Category: Medical Qualifiers: Laterality: right Qualified Code(s): H43.391 - Other vitreous opacities, right eye Plan: Ophthalmology referral done (7) Wrinkles: Code(s): L98.8 - Other specified disorders of the skin and subcutaneous tissue Category: Medical Plan: Tretinoin prescription sent Orders: Referrals Ophthalmology Referral H43.399 - Other vitreous opacities, unspecified eye Medications: New tretinoin 0.05% 1 appl topical BEDTIME 45 grams 0RF L98.8 - Other specified disorders of the skin and subcutaneous tissue
[2024-02-08 16:13] VITALS: BP 130/80; PULSE 60; O2SAT 98; BMI 22.2
== END 2024-02-08 16:55 | disposition home or self-care (01) ==
LOC: HO.HMCH 15:57
PROVIDERS: PCP Internal Medicine; Visit Provider Internal Medicine
DX: Z00.00 Encounter for general adult medical examination without abnormal findings (principal); K21.9 Gastro-esophageal reflux disease without esophagitis; R73.01 Impaired fasting glucose; E78.00 Pure hypercholesterolemia, unspecified; F41.1 Generalized anxiety disorder; H43.391 Other vitreous opacities, right eye; L98.8 Other specified disorders of the skin and subcutaneous tissue

== ENCOUNTER 2024-02-29 11:40 | Outpatient (REF) | payer OTHER, SELFPAY ==
--- NOTE | ~2024-02-29 | MM_ITS ---
EXAMINATION: MM SCREENING DIGITAL BREAST TOMOSYNTHESIS, BILATERAL CLINICAL INFORMATION: Screening. Asymptomatic. COMPARISON: Mammography: Comparison is made with available priors TECHNIQUE: Digital breast mammography with tomosynthesis is performed in both the craniocaudal and mediolateral oblique views along with computer-aided detection (CAD). FINDINGS: The breasts are heterogeneously dense, which may obscure small masses (ACR BI-RADS breast composition Category c). There are no significant masses, abnormal calcifications, or other abnormalities. MM/MM tomosynthesis screening BI IMPRESSION: No mammographic evidence of malignancy. ASSESSMENT: BI-RADS BI-RADS 1 - Negative RECOMMENDATION: Routine annual mammography screening. 1 year F/U This examination should not preclude the clinical evaluation of a suspicious palpable abnormality. This patient's information was entered into a reminder system with a target due date for their next mammogram. Electronically signed by: Patricia Houston DO 03/09/2024 02:18 PM SUKHDEEP
== END 2024-02-29 11:41 | disposition home or self-care (01) ==
LOC: HO.MAMMO 11:40
PROVIDERS: Visit Provider Internal Medicine
DX: Z12.31 Encounter for screening mammogram for malignant neoplasm of breast (principal)
CPT/HCPCS: 77063; 77067

== ENCOUNTER → 2024-02-29 11:45 | Outpatient (BNV) | payer OTHER, SELFPAY | PROVIDERS: Visit Provider Internal Medicine | DX: Z12.31 Encounter for screening mammogram for malignant neoplasm of breast (principal) | CPT/HCPCS: 77063; 77067 ==

== ENCOUNTER 2024-06-06 12:21 | Outpatient (AMB) | payer OTHER, SELFPAY ==
--- NOTE | 2024-06-06 12:38 | A.OFFVIS_ITS ---
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 No complaints. Last Pap/HPV was negative in 04/26 Last Mammogram was BI-RADS 1 in 02/27 Last Colonoscopy was in 12/19, the recommendation was to repeat in 10 years [facility] Medical History Fatigue Breast cancer screening Oral candidiasis Cervical cancer screening Fracture of radial neck, right, closed Cholelithiasis Anemia GERD (gastroesophageal reflux disease) Mixed incontinence urge and stress Surgical History No pertinent past surgical history Family History Father Mouth cancer Throat cancer Substance abuse Mother No problems noted. Maternal Grandmother Cervical cancer Maternal Grandfather Prostate cancer Maternal Aunt Breast cancer Paternal Grandmother Myocardial infarct Paternal Uncle Substance abuse Paternal Grandfather Substance abuse Other Mental health disorder Social History Household Members: Spouse Housing: Apartment Alcohol intake: current Comment: 2-3 x a week 1 glass Patient Tobacco Use Status: Never used Tobacco e-Cigarette/Vaping Use: Never Used Second Hand Smoke Exposure: No service: No Current occupational status: employed Current occupation: [employer] Sexual orientation: Straight/Heterosexual Gender identity: Female Cognitive needs: No Hearing needs: No Vision needs: Yes Female Reproductive History Menstrual Total pregnancies: 4 Full term: 2 Number of Living Children: 2 Ab induced: 2 Date of last pap smear: 04/20/20 (neg pap and hpv) Date of Mammogram: 02/29/24 Review of Systems Const All systems reviewed & are unremarkable except as noted in HPI and below Card Reports as per HPI Resp Reports as per HPI GI Reports as per HPI and Reports no additional complaints Reports as per HPI Physical Exam Vital Signs: Last Vital Signs BP 122/70 06/06/24 12:43 BMI result Body Mass Index 22.7 Const General: cooperative, healthy appearing and comfortable Chest Chest palpation & inspection: normal inspection of the chest and normal palpation of entire chest wall Breast/axilla inspection: normal inspection of the breasts and normal inspection of the axillae Breast/axilla palpation: normal palpation of the breasts, normal palpation of the axillae and no axillary lymphadenopathy Resp Effort & Inspection: normal respiratory effort Auscultation: clear to auscultation bilaterally Percussion: percussion normal Cardio Palpation: normal PMI Rate: regular rate Rhythm: regular rhythm Heart sounds: no murmurs and no rubs Peripheral pulses: Peripheral pulses 2+ throughout GI Inspection: Yes normal to inspection Palpation (GI): Soft to palpation, nontender, no guarding, not rigid and No hepatosplenomegaly present Percussion: Yes normal to percussion Auscultation: normal bowel sounds Rectal Exam - Female: deferred General: Yes bladder normal to palpation External Female Exam: No lesion Speculum Exam - Vagina: normal appearance of the vagina, normal palpation, normal vaginal discharge and not erythematous Speculum Exam - Cervix: normal appearance of the cervix and normal palpation Bimanual exam- vagina & uterus: normal bimanual exam, normal palpation, uterine size normal, bladder normal to palpation, consistency normal and normal palpation Bimanual Exam- Adnexa, other: normal adnexae, no masses and no tenderness Assessment & Plan Assessment & Plan (1) Well woman exam: Code(s): Z01.419 - Encounter for gynecological examination (general) (routine) without abnormal findings Category: Medical Plan: Co testing not indicated this year. Counseled the patient about the recommended dietary allowance of 1200 mg of Calcium & 600 IU of vitamin D. Instructions given the patient to schedule next screening Mammogram in 02/28. The patient was referred to GI for screening colonoscopy . The patient was instructed to perform monthly self-breast exams and schedule annual exam in a year. All questions answered and the patient verbalized understanding. Orders: Referrals Gastroenterology Referral Z12.11 - Encounter for screening for malignant neoplasm of colon Coding Level of Care Code Est Pt Prev Care 40-64y(21608) Diagnoses Well woman exam Z01.419
[2024-06-06 12:43] VITALS: BP 122/70; BMI 22.7
--- OUTSIDE RECORDS SUMMARY | 2024-06-06 14:35 | XMS_ITS ---
Author Organization [facility] Address [address] [place] [phone] Care Team Providers Care Law Writer Name Role Phone Karen Mesa MD Primary Care Provider Luther Barba Jr Unavailable REASON FOR VISIT Patient presents today for acid REFLUX Encounters Encounter Location Date Provider Diagnosis [facility] [address] [place] [phone] 05/20/2023 Luther Maciel Jr PLAN OF TREATMENT No Information
--- OUTSIDE RECORDS SUMMARY | 2024-06-06 14:35 | XMS_ITS ---
Author Organization [facility] Address [address] [place] [phone] Care Team Providers Care Professor Of Counseling Name Role Phone Karen Mesa MD Primary Care Provider Nimesh Maciel Jr, Luther Merchant REASON FOR VISIT cancel OV Encounters Encounter Location Date Provider Diagnosis [facility] [address] [place] [phone] 05/18/2023 Luther Maciel Jr PLAN OF TREATMENT No Information
--- OUTSIDE RECORDS SUMMARY | 2024-06-06 14:36 | XMS_ITS | Patient Health Record ---
Author Organization [facility] Address [address] [place] [address] Care Team Providers Care Rock Crusher Name Role Phone Po Karen WILSON Primary Care Provider Luther Barba Jr Unavailable [phone] REASON FOR REFERRAL No Information SOCIAL HISTORY Sex Assigned At : Social History Observation Description Sex Assigned At Unknown PLAN OF TREATMENT No Information Insurance Providers Payer Name Payer Address Payer Phone Subscriber Number Group Number Insured Name Patient Relationship to Insured Coverage Start Date Coverage End Date [employer] [address] [place] [phone] [id number] PAUL MCKINNON Self - patient is the insured
== END 2024-06-06 13:02 | disposition home or self-care (01) ==
PROVIDERS: PCP Internal Medicine; Visit Provider Obstetrics & Gynecology
DX: Z01.419 Encounter for gynecological examination (general) (routine) without abnormal findings (principal)
CPT/HCPCS: 99396; 99459

== ENCOUNTER 2025-02-06 08:28 | Outpatient (REF) | payer OTHER, SELFPAY ==
[2025-02-06 08:40] LABS: MANUAL DIFF FLAG NO
--- OUTSIDE RECORDS SUMMARY | 2025-02-06 08:49 | XMS_ITS | Clinical Summary ---
Author Organization [facility] Address [address] [facility] [address] [place] [phone] Phone Care Team Providers Care Yardage Control Operator Name Role Phone Karen Mesa MD Unavailable [phone] Tremayne Arriaga MD Unavailable [phone] Karen Mesa MD Primary Care Provider [phone] Allergies Active Allergy Reactions Criticality Noted Date Comments Oxycodone Nausea and/or Vomiting Medium 06/19/2023 Sulfa (Sulfonamide Antibiotics) Rash Low 06/19/2023 Medications omeprazole (PRILOSEC) 20 MG tablet Take 20 mg by mouth daily. Active FLUoxetine (PROZAC) 20 MG capsule Take 20 mg by mouth daily. Active PREVIDENT 5000 SENSITIVE 1.1-5 % Pste 10/29/2024 Active Active Problems No known active problems Immunizations Immunization Administration Dates Next Due COVID-19 (Pre-01/26) Moderna Vaccine, Bivalent 6mo+ 01/22/2022,01/22/2022 COVID-19 (Pre) Pfizer Vaccine, mRNA, PF 01/03/2021,01/03/2021,05/26/2020,2020,05/05/2020,05/05/2020 COVID-19 Pfizer Comirnaty Vaccine 12+ 12/22/2022 Influenza Quadrivalent MDCK Preservative Free IM 01/22/2022 Influenza, Unspecified Formulation 12/22/2022 Tdap 11/24/2021,11/24/2021 Family History Medical History Relation Comments Cancer Father 2 Relation Status Comments Father 1 Father 2 Social History Tobacco Use Types Packs/Day Years Used Date Smoking Tobacco: Never Smokeless Tobacco: Never Alcohol Use Standard Drinks/Week Comments Yes 1 (1 standard drink = 0.6 oz pur e alcohol) 1 glass wine daily Education Answer Date Recorded Are you interested in more education? Not on dong e 08/01/2022 Are you concerned about learning? Not on file 08/01/2022 No 08/01/2022 No 08/01/2022 Digital Access Answer Date Recorded No 08/30/2022 No 08/30/2022 Reliable internet access at home? Not on file 08/30/2022 Device with a working camera? Not on file Intimate Partner Violence Answer Date R ecorded Are you denied basic needs s uch as food, clothing, or medical care? No 06/22/2023 In the past 12 months have y ou been in a relationship with a person who hurts, threatens, or tries to control you? No 06/22/2023 Are you denied basic needs s uch as food, clothing, or medical care? No 06/22/2023 In the past 12 months have y ou been in a relationship with a person who hurts, threatens, or tries to control you? No 06/22/2023 Comments Unknown Sex and Gender Information Value Date Recorded Sex Assigned at Not on file Legal Sex Female 10:34 PM EDT Gender Identity Not on file Sexual Orientation Not on file Last Filed Vital Signs Vital Sign Reading Time Taken Comments Blood Pressure 132/82 11/02/2024 3:10 PM EDT Pulse 68 11/02/2024 3:10 PM EDT Temperature 36.7 C (98 F) 11/02/2024 3:10 PM EDT Respiratory Rate 18 11/02/2024 3:10 PM EDT Oxygen Saturation 100% 11/02/2024 3:10 PM EDT Inhaled Oxygen Concentration - - Weight 67.1 kg (148 lb) 06/19/2023 8:52 AM EDT Height 177.8 cm (5' 10 ) 06/19/2023 8:52 AM EDT Body Mass Index 21.24 06/19/2023 8:52 AM EDT Plan of Treatment Health Maintenance Due Date Last Done Comments LIPID PANEL 1962 DEPRESSION SCREENING 1974 HEPATITIS C SCREENING 1980 HIV ONE-TIME SCREENING (18-65 YEARS) 1980 PAP SMEAR 09/08/1983 MAMMOGRAM 2002 COLOGUARD 09/08/2007 COLONOSCOPY 09/08/2007 COLORECTAL CANCER SCREENING 09/08/2007 FIT TEST 09/08/2007 FOBT 09/08/2007 SIGMOIDOSCOPY 09/08/2007 VIRTUAL COLONOSCOPY 09/08/2007 PNEUMOCOCCAL VACCINES (50+ years) (1 of 1 - PCV) 2012 ZOSTER VACCINES (1 of 2) 2012 INFLUENZA VACCINE (#1) 2024 , 12/22/2022, 01/22/2022 COVID-19 VACCINE (2024- season) 2024 12/17/2023, 12/22/2022, 01/22/2022, Additional history exists Adult Td,Tdap Booster 11/25/2031 11/24/2021, 022 RSV VACCINE (1 - 1-dose 75+ series) 2037 SMOKING STATUS SCREENING (Once After 26 Yrs) Completed 06/22/2023 HEPATITIS A VACCINES Aged Out No long er eligible based on patient's age to complete this topic HIB VACCINES Aged Out No longer eligi ble based on patient's age to complete this topic MENINGOCOCCAL VACCINES (ACWY) Aged Out No longer eligible based on patient's age to complete this topic MENINGOCOCCAL VACCINES (B) Aged Out N o longer eligible based on patient's age to complete this topic Medical Devices Not on file Insurance [facility] [employer] FAMILY [employer] [facility] [employer] FAMILY [employer] [employer] FAMILY [employer] [employer] FAMILY [employer] [employer] FAMILY [employer] [employer] FAMILY Care Teams Yardage Control Operator Relationship Specialty Start Date End Date Karen Mesa MD [address] [place] [phone] PCP - General 04/09/17 Karen Mesa MD [address] [place] [phone] Historical LMR Provider 01/22/17 Tremayne Arriaga MD [address] [place] [address], [address] [place] [address] Historical LMR Provider 01/22/17 Additional Source Comments The information contained in this document represents components of the legal health record. It is not the complete legal health record.[facility]
--- OUTSIDE RECORDS SUMMARY | 2025-02-06 08:49 | XMS_ITS | Encounter Summary ---
Author Organization [facility] Address [address] [place] [phone] Phone Care Team Providers Care Wafer Polishing Lead Worker Name Role Phone Karen Mesa MD Unavailable [phone] Tremayne Arriaga MD Unavailable [phone] Karen Mesa MD Primary Care Provider [phone] Encounter Details Date Type Department Care Team (Late st Contact Info) Description 06/22/2023 Procedure Pass [facility] Endoscopy Admitting Dept Virtual Department [address] [place] [address] Social History Tobacco Use Types Packs/Day Years [...] on file Sexual Orientation Not on file documented as of this encounter Plan of Treatment Not on file documented as of this encounter Visit Diagnoses Not on filedocumented in this encounter Care Teams Wafer Polishing Lead Worker Relationship Specialty Start Date End Date Karen Mesa MD [address] [place] [phone] PCP - General 04/09/17 Karen Mesa MD [address] [place] [phone] Historical LMR Provider 01/22/17 Tremayne Arriaga MD [address] [facility], 2nd [place] [address] [email or web address] Historical LMR Provider 01/22/17 documented as of this encounter Additional Source Comments The information contained in this document represents components of the legal health record. It is not the complete legal health record.[facility]
[2025-02-06 09:03] LABS: Hematocrit 42.1 % (37.0-47.0); Hemoglobin 13.7 g/dl (12.0-16.0); Imm Gran Abs Auto 0.01 X10*3/uL (0.00-0.03); Imm Gran Pct Auto 0.2 % (0.0-0.4); Lymphocytes Absolute Auto 2.3 X10*3/uL (1.2-4.9); Mean Corpuscular HGB Conc 32.5 g/dl (31.0-35.0); Mean Corpuscular Hemoglobin 27.2 pg (27.0-33.0); Mean Corpuscular Volume 83.5 fL (80.0-98.0); NRBC Abs Auto 0.000 X10*3/uL (0.0-0.012); NRBC Pct Auto 0.0 /100WBC (0.0-0.2); Platelet Count 228 X10*3/uL (160-400); Red Blood Count 5.04 X10*6/uL (4.20-5.50); White Blood Count 5.2 X10*3/uL (4.8-10.8)
[2025-02-06 09:23] LABS: Appearance Urine Clear; Glucose Urine UA Negative (Negative); PH 8.0 (5.0-9.0); Specific Gravity - Urine 1.010 (1.005-1.025); UMIC TRIGGER UACC YES
[2025-02-06 09:51] LABS: Alanine Aminotransferase 25 U/L (0-31); Albumin Level 4.7 g/dL (3.5-5.0); Alkaline Phosphatase 70 U/L (39-117); Anion Gap 9 (12-20); Aspartate Amino Transferase 30 U/L (5-31); Blood Urea Nitrogen 13 mg/dL (9-16); Calcium 9.7 mg/dL (8.4-10.2); Carbon Dioxide 31 mmol/L (22-29); Chloride 106 mmol/L (96-108); Cholesterol 233 mg/dL (<200); Estimated Glomerular Filt Rate > 60; HDL Cholesterol 83 mg/dL (>40); Magnesium 2.1 mg/dL (1.6-2.6); Potassium 4.4 mmol/L (3.3-5.1); Sodium 142 mmol/L (135-145); Total Protein 7.5 g/dL (6.5-8.0); Triglycerides 77 mg/dL (<150)
[2025-02-06 10:12] LABS: Free T4 (Free Thyroxine) 0.88 ng/dL (0.71-1.85); Thyroid Stimulating Hormone 0.81 uIU/mL (0.32-4.0)
[2025-02-06 10:13] LABS: Folate 10.9 ng/mL (> or = 4.0); Vitamin B12 591 pg/mL (200-900)
== END 2025-02-06 08:29 | disposition home or self-care (01) ==
LOC: HO.LAB 08:28
PROVIDERS: PCP Internal Medicine; Visit Provider Internal Medicine
DX: E78.00 Pure hypercholesterolemia, unspecified (principal); Z13.1 Encounter for screening for diabetes mellitus; Z13.21 Encounter for screening for nutritional disorder
CPT/HCPCS: 36415; 80053; 80061; 81001; 82306; 82607; 82746; 83036; 83735; 84439; 84443; 85025

== ENCOUNTER 2025-02-10 11:27 | Outpatient (AMB) | payer OTHER, SELFPAY ==
[2025-02-10 11:28] VITALS: BP 112/78; PULSE 68; TEMP 36.2; O2SAT 93; BMI 22.7
--- NOTE | 2025-02-10 11:28 | A.OFFPC_ITS ---
Vital Signs 02/10/25 11:28 Height 5 ft 10 in Weight 158 lb 2 oz BMI 22.7 BP 112/78 Blood Pressure Location Lt brachial Position Sitting Pulse 68 Pulse Source Pulse Oximeter Temp 97.1 F Temp Source Temporal Artery Scan Pulse Oximetry (%) 93 Oxygen Delivery Method Room Air Intake Visit Reasons: pe Allergies codeine (CODEINE) Allergy (Unknown, Verified 02/10/25 11:32) NAUSEA & VOMITING oxycodone (OXYCODONE) Allergy (Unknown, Verified 02/10/25 11:32) NAUSEA & VOMITING Sulfa (Sulfonamide Antibiotics) (SULFA (SULFONAMIDE ANTIBIOTICS)) Allergy (Unknown, Verified 02/10/25 11:32) RASH Medication List - Last Reconciled 02/10/25 by Karen Mesa MD cyanocobalamin (vitamin B-12) 1,000 mcg PO DAILY cyanocobalamin (vitamin B-12) (Vitamin B-12) 3,000 mcg sublingual DAILY fluoxetine 20 mg PO DAILY magnesium 200 mg PO DAILY lkzdonuj-nzy-CM-lycopen-lutein 0.4 mg-300 mcg- 250 mcg (Centrum Silver) 1 tab PO DAILY thiamine HCl (vitamin B1) 50 mg PO DAILY tretinoin 0.05% 1 appl topical BEDTIME Tobacco use date assessed: 02/10/25 Dental Screening Dental Screen Date: 02/10/25 Did you have a dental visit in the last 12 months?: Yes Did you have a dental problem in the last 6 months where you did not have access to dental care?: No Was dental information given to patient?: Patient has dentist [facility] Medical History (Updated 02/10/25 @ 12:21 by Karen Mesa MD) Age-related osteoporosis without current pathological fracture Fatigue Breast cancer screening Oral candidiasis Cervical cancer screening Fracture of radial neck, right, closed Cholelithiasis Anemia GERD (gastroesophageal reflux disease) Mixed incontinence urge and stress Surgical History No pertinent past surgical history Family History Father Mouth cancer Throat cancer Substance abuse Mother No problems noted. Maternal Grandmother Cervical cancer Maternal Grandfather Prostate cancer Maternal Aunt Breast cancer Paternal Grandmother Myocardial infarct Paternal Uncle Substance abuse Paternal Grandfather Substance abuse Other Mental health disorder Social History Household Members: Spouse Housing: Apartment Alcohol intake: current Comment: 2-3 x a week 1 glass Patient Tobacco Use Status: Never used Tobacco e-Cigarette/Vaping Use: Never Used Second Hand Smoke Exposure: No service: No Current occupational status: employed Current occupation: [employer] Sexual orientation: Straight/Heterosexual Gender identity: Female Cognitive needs: No Hearing needs: No Vision needs: Yes Questionnaire PHQ-9 Over the last 2 weeks, how often have you been bothered by any of the following problems? 1. Little interest or pleasure in doing things: not at all 2. Feeling down, depressed, or hopeless: not at all 3. Trouble falling or staying asleep, or sleeping too much: not at all 4. Feeling tired or having little energy: not at all 5. Poor appetite or overeating: not at all 6. Feeling bad about yourself - or that you are a failure or have let yourself or your family down: not at all 7. Trouble concentrating on things, such as reading the newspaper or watching television: not at all 8. Moving or speaking so slowly that other people could have noticed. Or the opposite - being so fidgety or restless that you have been moving around a lot more than usual: not at all 9. Thoughts that you would be better off or of hurting yourself in some way: not at all Total score: 0 Depression Screening Interpretation: Negative Depression Screening Done: Yes 57133 - PHQ-9 Billing: Yes Source: Developed by Drs. Rocky Douglas, Sarah Lara, Bunny Patel and colleagues, with an educational tereso from [employer]. Thrive Questionnaire Date Thrive assessed: 02/08/25 I am a: Patient What is your living situation today?: I have a steady place to live Within the past 12 months, did the food you bought not last and you didn't have the money to get more?: Never true Within the past 12 months, did you worry whether your food would run out before you got money to buy more?: Never true Do you have trouble paying for medicines?: No Do you have trouble getting transportation to medical appointments?: No Do you have trouble paying your heating and electricity bill?: No Do you have trouble taking care of your child, family member or friend?: No Do you have trouble with day-to-day activities such as bathing, preparing meals, shopping, managing finances, etc.?: No Are you currently unemployed and looking for a job?: No Are you interested in more education?: No Please select the resources that you would like help with: None Currently or been in a relationship where the following occur: No concerns reported THRIVE Score: 0 AUDIT C Alcohol Use Questionnaire (AUDIT-C) 1. How often do you have a drink containing alcohol?: 2-3 times a week 2. How many drinks containing alcohol do you have on a typical day when you are drinking?: 1 or 2 3. How often do you have six or more drinks on one occasion?: Never Total Score: 3 ISAURA-7 AMB Questionnaire ISAURA-7 Date ISAURA - 7 assessed: 02/10/25 Feeling nervous, anxious, or on edge: 0 = Not at all Not being able to stop or control worryin = Not at all Worrying too much about different things: 0 = Not at all Trouble relaxin = Not at all Being so restless that it is hard to sit still: 0 = Not at all Becoming easily annoyed or irritable: 0 = Not at all Feeling afraid as if something awful might happen: 0 = Not at all Total ISAURA-7 score (0-4 normal; 5-9 mild; 10-14 moderate; 15-21 severe): 0 Source: Developed by Drs. Rocky Douglas, Sarah Lara, Bunny Patel and colleagues, with an educational tereso from [employer]. ISAURA-7 Assessment Billing ISAURA-7 Assessment Tool: ISAURA-7 Assessment 03260 Review of Systems Const Denies poor appetite and Denies weakness Eyes Denies no additional complaints ENT Reports Normal hearing present, Denies dizziness, Denies nasal congestion, Denies tinnitus and Denies sore throat Card Denies chest pain, Denies syncope, Denies rapid heart rate and Denies dyspnea Resp Denies cough and Denies dyspnea GI Denies change in stool character, Reports constipation, Denies diarrhea, Denies nausea and Denies vomiting Denies urinary frequency, Denies difficulty voiding and Denies dysuria Neuro Reports Normal hearing present, Denies confusion, Denies dizziness, Denies syncope and Denies weakness Psych Denies confusion Physical exam (Primary Care) Vital Signs: Last Vital Signs Temp 97.1 F 02/10/25 11:28 Pulse 68 02/10/25 11:28 BP 112/78 02/10/25 11:28 Pulse Ox 93 02/10/25 11:28 Oxygen Delivery Method Room Air 02/10/25 11:28 BMI result Body Mass Index 22.7 Tobacco/Smoking Status: Tobacco use Status Tobacco use date assessed 02/10/25 02/10/25 11:33 Patient Tobacco Use Status Never used Tobacco 02/10/25 11:33 e-Cigarette/Vaping Use Never Used 02/10/25 11:33 PHQ-9: PHQ-9 Score PHQ-9: Total score 0 02/10/25 12:05 Depression Screening Interpretation: Negative Thrive Assessment: Date of Thrive Assessment Date Thrive assessed 02/08/25 02/10/25 11:33 Currently or been in a relationship where the following occur: No concerns reported Const General: No confusion Orientation/consciousness: No confusion HENMT Other: impacted cerumen R ear, Left TM intact Head: Yes normocephalic Ears: external ears normal Face and sinus: Yes normal facial exam Mouth: moist mucous membranes Throat: Yes tonsils normal Eyes Conjunctivae: conjunctivae normal Pupils: Equal, round and reactive pupils present and Pupil accommodation reflex normal Direct Ophthalmoscopy: normal light reflex Neck Neck: No lymphadenopathy Thyroid: Thyroid normal Chest Chest palpation & inspection: normal inspection of the chest Resp Effort & Inspection: normal respiratory effort and no audible wheezes Auscultation: clear to auscultation bilaterally, no crackles, no wheezes and lung sounds not diminished Cardio Rate: regular rate Rhythm: regular rhythm Peripheral pulses: radial pulses present and dorsalis pedis present GI Palpation (GI): no masses Auscultation: normal bowel sounds and normoactive bowel sounds Rectal Exam - Female: deferred Skin General skin exam: no rashes or lesions noted Rashes: no rashes Neuro General: No confusion Cranial nerves: Yes Equal, round and reactive pupils present and Yes Normal hearing present Cognition (Neuro): normal cognition Gait exam (Neuro): Normal gait present Motor exam (neuro): 5/5 motor strength present throughout Deep tendon reflexes (DTR's): Right brachioradialis reflex intensity grade: 2+, Left brachioradialis reflex intensity grade: 2+, Right patellar reflex intensity grade: 2+ and Left patellar reflex intensity grade: 2+ Extrem General: No edema Coding Level of Care Code Est Pt Prev Care 40-64y(24002) Diagnoses Annual physical exam Z00.00 Osteopenia M85.80 Impaired fasting blood sugar R73.01 Hypercholesterolemia E78.00 Gastroesophageal reflux disease without esophagitis K21.9 Esophagitis presence: without esophagitis Colon cancer screening Z12.11 Generalized anxiety disorder F41.1 Impacted cerumen of right ear H61.21 Additional Codes ISAURA-7 Assessment Billing - ISAURA-7 Assessment Tool: ISAURA-7 Assessment 78313 ([id number]) PHQ-9 - 05716 - PHQ-9 Billing: Yes ([id number]) Assessment & Plan Assessment & Plan (1) Annual physical exam: Code(s): Z00.00 - Encounter for general adult medical examination without abnormal findings Category: Medical Plan: Patient is advised to eat healthy, keep well hydrated, keep active and have adequate sleep. (2) Osteopenia: Comment: 2021 Code(s): M85.80 - Other specified disorders of bone density and structure, unspecified si te Category: Medical Plan: Reminded about bone density (3) Impaired fasting blood sugar: Code(s): R73.01 - Impaired fasting glucose Category: Medical Plan: Decrease the amount of carbohydrate intake, pasta, bread, rice and potatoes are all sugar and that is aside from all the sweet stuff, remember that fruits are good but they are Sweet also. (4) Hypercholesterolemia: Code(s): E78.00 - Pure hypercholesterolemia, unspecified Category: Medical Plan: Avoid fried foods, chicken skin, eggs, butter margarine, pastries and meat. Be it pork or beef they have a lot of cholesterol LDL goal of less than 130 and triglyceride of less than 150 (5) GERD (gastroesophageal reflux disease): Comment: GI series September 2022 severe GERD Code(s): K21.9 - Gastro-esophageal reflux disease without esophagitis Category: Medical Qualifiers: Esophagitis presence: without esophagitis Qualified Code(s): K21.9 - Gastro-esophageal reflux disease without esophagitis Plan: Avoid the foods that causes that usually spicy foods, tomato products, juices, coffee, soda and foods that your sensitive to. After eating do not lie down, allow 3-4 hours before in lie down. And keep the head of bed above 30 degrees to avoid the acid from going up. (6) Colon cancer screening: Code(s): Z12.11 - Encounter for screening for malignant neoplasm of colon Category: Medical Plan: Colonoscopy reminder (7) Generalized anxiety disorder: Code(s): F41.1 - Generalized anxiety disorder Category: Medical Plan: Continue with present medication. (8) Impacted cerumen of right ear: Code(s): H61.21 - Impacted cerumen, right ear Category: Medical Plan History of Present Illness The patient is a 64-year-old female presenting for a physical exam. She has a history of gastroesophageal reflux disease, glucose intolerance, osteopenia with the last bone density scan in September 2021, generalized anxiety disorder, and hypercholesterolemia. Regarding her GERD, the patient reports phlegm production in the morning when she lies down. She previously stopped taking omeprazole but would like a prescription for it again for occasional use. She manages her symptoms by avoiding late-night eating and chocolate and occasionally uses Tums. For health maintenance, her last colonoscopy was in 2014 and is due this year; she has a consultation scheduled. A mammogram is scheduled for March, and she is due for a bone density scan. She has a gynecology follow-up in June. Recent lab work from February showed a normal blood count, electrolytes, and kidney and liver function. Her fasting blood sugar was slightly elevated at 102 mg/dL, and her hemoglobin A1c was 5.7%. Cholesterol was 135 mg/dL, and levels of B12, vitamin D, folic acid, and thyroid were normal. Her current medications include fluoxetine 20 mg daily, tretinoin cream, and various supplements such as magnesium, vitamin B1 (thiamine), vitamin B12 spray, and Centrum Silver. She reports taking her vitamins intermittently as they sometimes cause stomach upset. She has known allergies to narcotics, codeine, and sulfa drugs. The patient's family history is significant for throat cancer in her father, cervical cancer in her grandmother, prostate cancer in her grandfather, and breast cancer in her aunt. Her father and grandmother also had heart disease. She reports no new diagnoses or surgeries since her last visit. Health Maintenance The patient's health screenings were reviewed. She was reminded that her colono scopy is due, for which she has a consultation scheduled. Her mammogram is scheduled for March, and an order for a bone density scan will be added to that appointment. She will continue her current medications and was encouraged to continue with lifestyle modifications including diet and exercise. Social History - Alcohol Use: Reports drinking alcohol 2-3 times per week, having one glass per occasion. - Tobacco Use: Denies any history of smoking cigarettes. - Recreational Drug Use: Reports occasional use of marijuana edibles. - Diet: Does not eat meat but consumes cheese. - Exercise: Reports walking 1 mile per day and notes her Apple watch indicates a high level of cardiovascular fitness. - Hydration: Mainly drinks tea and acknowledges she should drink more water. Review of Systems - General: Denies fevers. - HEENT: Reports scaly skin in her ears and morning phlegm. Notes a recent diagnosis of early cataracts. Denies hearing problems or difficulty swallowing. - Cardiovascular: Denies chest pain, heaviness, or discomfort. - Respiratory: Denies waking up with shortness of breath. Reports no issues climbing stairs. - Gastrointestinal: Reports symptoms consistent with reflux when lying down. Denies nausea, vomiting, or problems with bowel movements. - Genitourinary: Reports waking up once per night to urinate. - Neurological: Denies syncope or dizziness. Physical Exam General: Cooperative, healthy appearing, comfortable, no acute distress and well developed Orientation: Patient oriented x3 Limitations: No limitations Head: Normal to inspection Ears: Hearing grossly normal bilaterally, but earwax noted; advised to use ozxu-rtj-itpsxhr drops or flush if necessary Nose: Normal external nose present Face and sinus: Normal facial exam Eyes: Appearance normal, both eyes and all related structures; beginning of cataracts noted, no pressure problems Neck: Normal visual inspection and Yes full ROM Respiratory: Normal respiratory effort and able to speak in complete sentences. Clear to auscultation bilaterally Cardiovascular: Regular rate and rhythm. Normal S1 and S2 GI: Normal to inspection. Soft to palpation and nontender Skin: No rashes or lesions noted Neuro: Patient oriented x3 Extremities: Normal to inspection Results - Labs from February 06: - CBC: Within normal limits, patient is not anemic. - BMP: Normal electrolytes and kidney function. Fasting glucose was 102 mg/dL. - Hemoglobin A1c: 5.7%. - Liver Function Tests: Normal. - Lipid Panel: Cholesterol was 135 mg/dL. HDL is noted to be high and protective. - Vitamins/Hormones: Vitamin B12, vitamin D, folic acid, magnesium, and thyroid levels were all within normal limits. - Tests and Diagnostics: - Bone Density Scan (September 2021): Revealed osteopenia. - Eye Exam (recently): Revealed early cataracts. Plan Patient was informed and verbally consented to the use of an ambient scribe for clinic note documentation during this visit. 1. Gastroesophageal Reflux Disease The patient reports morning phlegm consistent with reflux. A prescription for a 90-day supply of omeprazole will be sent for as-needed use. The patient was counseled on the risks of long-term PPI use, including malabsorption of B12 and magnesium, and was advised against daily continuous use. 2. Prediabetes Recent labs showed a fasting glucose of 102 mg/dL and a hemoglobin A1c of 5.7%, indicating prediabetes. The patient was informed of these results and the plan includes monitoring and continued focus on healthy lifestyle choices. 3. Hypercholesterolemia The patient was counseled on dietary changes to manage cholesterol, including reducing intake of cheese and butter. The established goal is an LDL of less than 130 mg/dL and triglycerides of less than 150 mg/dL. 4. Cerumen Impaction Bilateral cerumen impaction was noted on exam, obstructing the view of the tympanic membranes. The patient was advised to use gzni-zov-njnnajm drop kits or flushing kits to resolve the impaction and to follow up in the clinic for irrigation if home attempts are unsuccessful. 5. Osteopenia The patient is due for a repeat bone density scan, with her last one in 2021 showing osteopenia. An order will be placed to coordinate the scan with her scheduled mammogram. 6. Generalized Anxiety Disorder The patient will continue her current regimen of fluoxetine 20 mg daily. Discussion Notes I reviewed the patient's recent lab results, highlighting her fasting glucose of 102 mg/dL and HbA1c of 5.7%, making her aware she is in the prediabetic range. We discussed her hypercholesterolemia, setting goals for an LDL below 130 and triglycerides below 150, and I recommended dietary changes like reducing cheese and butter. Regarding her GERD symptoms, I will prescribe omeprazole, but I advised her to use it periodically rather than daily. I explained that long-term use can interfere with the absorption of essential nutrients like magnesium and vitamin B12 and has been linked to other health concerns. I counseled her on her substance use, noting the increased risk of heart attacks, strokes, and bladder cancer associated with smoking marijuana, and advised that edibles are a safer alternative. Upon physical examination, I found significant cerumen impaction in both ears. I recommended she try an tptj-ans-wezyzzu removal kit and informed her she could return for in-office flushing if needed. We confirmed her outstanding health maintenance needs, including a colonoscopy and mammogram, and I placed an order to add a bone density scan to her upcoming mammogram appointment. I also provided general wellness advice regarding hydration, diet, and physical activity. Patient Instructions - A 90-day supply of omeprazole will be prescribed for your reflux. Take this medicine only when you have symptoms, not every day. - Continue taking all your other current medications, including fluoxetine, and supplements as you have been. - Use an eqtt-vqv-qhjrscn kit with drops or a flushing device to remove the wax from your ears. If this does not work, you can schedule an appointment at the clinic to have them flushed. - Proceed with your mammogram appointment scheduled in March. A bone density scan will be added to this visit. - Follow through with your colonoscopy, for which you already have a consultation scheduled. - Remember to attend your gynecology appointment in June. - Your recent lab work shows your blood sugar is slightly high. Continue with a healthy diet and exercise. - To help manage your cholesterol, try to cut down on foods like cheese and butter. - If you choose to use marijuana, edibles are a safer choice than smoking. - Continue to stay active, drink at least 6-8 glasses of water daily, and eat a healthy diet. Orders: Orders XR DEXA axial skeleton Today M81.0 - Age-related osteoporosis without current pathological fracture, M85.80 - Other specified disorders of bone density and structure, unspecified site Medications: New omeprazole 20 mg PO DAILY 90 caps 0RF K21.9 - Gastro-esophageal reflux disease without esophagitis
--- OUTSIDE RECORDS SUMMARY | 2025-02-10 13:49 | XMS_ITS | Clinical Summary ---
Author Organization [facility] Address [address] [facility] [address] [place] [address] Phone Care Team Providers Care Physician In Private Practice Name Role Phone Karen Mesa MD Unavailable [phone] Tremayne Arriaga MD Unavailable [phone] Karen Mesa MD Primary Care Provider [phone] Allergies Active Allergy Reactions Criticality Noted Date [...] topic Medical Devices Not on file Insurance [facility] [employer] FAM[employer] [facility] [employer] FAM[employer] [employer] [facility] [employer] [facility] [employer] [facility] [facility] [employer] FAMILY Care Teams Physician In Private Practice Relationship Specialty Start Date End Date Karen Mesa MD [address] [place] [phone] PCP - General 04/09/17 Karen Mesa MD [address] [place] [phone] Historical LMR Provider 01/22/17 Tremayne Arriaga MD [address] [place] [address], [address] [place] [address] Historical LMR Provider 01/22/17 Additional Source Comments The information contained in this document represents components of the legal health record. It is not the complete legal health record.[facility]
--- OUTSIDE RECORDS SUMMARY | 2025-02-10 13:49 | XMS_ITS | Encounter Summary ---
Author Organization [facility] Address [address] [place] [id number] Phone Care Team Providers Care Environmental Field Technician Name Role Phone Karen Mesa MD Unavailable [phone] Tremayne Arriaga MD Unavailable [phone] Karen Mesa MD Primary Care Provider [phone] Encounter Details Date Type Department Care Team (Late st Contact Info) Description 06/22/2023 Procedure Pass [facility] Endoscopy Admitting Dept Virtual Department [address] [place] [address] Social History Tobacco Use Types Packs/Day Years [...] on filedocumented in this encounter Care Teams Environmental Field Technician Relationship Specialty Start Date End Date Karen Mesa MD [address] [place] [id number] PCP - General 04/09/17 Karen Mesa MD [address] [place] [phone] Historical LMR Provider 01/22/17 Tremayne Arriaga MD [address] [facility] [place] [address] [email or web address] Historical LMR Provider 01/22/17 documented as of this encounter Additional Source Comments The information contained in this document represents components of the legal health record. It is not the complete legal health record.[facility]
== END 2025-02-10 12:27 | disposition home or self-care (01) ==
LOC: HO.HMCH 11:27
PROVIDERS: PCP Internal Medicine; Visit Provider Internal Medicine
DX: Z00.00 Encounter for general adult medical examination without abnormal findings (principal); M85.80 Other specified disorders of bone density and structure, unspecified site; R73.01 Impaired fasting glucose; E78.00 Pure hypercholesterolemia, unspecified; K21.9 Gastro-esophageal reflux disease without esophagitis; Z12.11 Encounter for screening for malignant neoplasm of colon; F41.1 Generalized anxiety disorder; H61.21 Impacted cerumen, right ear

== ENCOUNTER → 2025-02-10 11:27 | Outpatient (BNVA) | payer OTHER, SELFPAY | PROVIDERS: PCP Internal Medicine; Visit Provider Internal Medicine | DX: Z00.00 Encounter for general adult medical examination without abnormal findings (principal); M85.80 Other specified disorders of bone density and structure, unspecified site; E78.00 Pure hypercholesterolemia, unspecified; K21.9 Gastro-esophageal reflux disease without esophagitis; F41.1 Generalized anxiety disorder; H61.21 Impacted cerumen, right ear; R73.03 Prediabetes | CPT/HCPCS: 96127 ==

== ENCOUNTER 2025-03-13 10:54 | Outpatient (REF) | payer OTHER, SELFPAY ==
--- NOTE | ~2025-03-13 | MM_ITS ---
EXAMINATION: MM SCREENING DIGITAL BREAST TOMOSYNTHESIS, BILATERAL CLINICAL INFORMATION: Screening. Asymptomatic. COMPARISON: Comparison made to multiple prior, most recent February 29, 2024, and most remote April 18, 2016. TECHNIQUE: Digital breast tomosynthesis is performed in mediolateral oblique and craniocaudal views along with computer-aided detection (CAD). Synthesized 2D images are generated from the tomosynthesis. FINDINGS: BREAST COMPOSITION: The breasts are heterogeneously dense, which may obscure small masses. BILATERAL BREASTS: No significant masses, suspicious calcifications or other abnormalities are seen in either breast. MM/MM tomosynthesis screening BI IMPRESSION: BILATERAL BREASTS: Negative, no mammographic evidence of malignancy. Normal interval follow-up is recommended in 12 months. ASSESSMENT: BI-RADS: Category 1: Negative RECOMMENDATION: Routine annual mammography screening. FOLLOW-UP: 1 year F/U This examination should not preclude the clinical evaluation of a suspicious palpable abnormality. This patient's information was entered into a reminder system with a target due date for their next mammogram. Electronically signed by: Brooklynn Mckeon MD 03/13/2025 07:28 PM [email or web address]
== END 2025-03-13 10:55 | disposition home or self-care (01) ==
LOC: HO.MAMMO 10:54
PROVIDERS: PCP Internal Medicine; Visit Provider Internal Medicine
DX: Z12.31 Encounter for screening mammogram for malignant neoplasm of breast (principal)
CPT/HCPCS: 77063; 77067

== ENCOUNTER → 2025-03-13 11:00 | Outpatient (BNV) | payer OTHER, SELFPAY | PROVIDERS: PCP Internal Medicine; Visit Provider Radiology Body Imaging | DX: Z12.31 Encounter for screening mammogram for malignant neoplasm of breast (principal) | CPT/HCPCS: 77063; 77067 ==